=== PATIENT | male | born 1965 | race Caucasian/White ===

== ENCOUNTER 2017-09-29 08:34 | Day surgery (SDC) | payer OTHER ==
[~2017-09-29] VITALS: Ht 167.6 cm; Wt 77.3 kg
[~2017-09-29 08:34] MED LIST: Norco 5-325 Ta1 EACH PO
[2017-09-29] MEDS ORDERED: GABA400 PO (11:07)
[2017-09-29] MEDS ORDERED: Advil200 M1 PO (11:07)
== END 2017-09-29 17:30 | disposition home or self-care (01) ==
LOC: ORSCSDS 08:34
PROVIDERS: Orthopaedic Surgery
PROC: 0LQ80ZZ Repair Left Hand Tendon, Open Approach (ICD-10-PCS; principal; 2017-09-29 12:00)
PROC: 01Q60ZZ Repair Radial Nerve, Open Approach (ICD-10-PCS; principal; 2017-09-29 12:00)
DX: S66.022A Laceration of long flexor muscle, fascia and tendon of left thumb at wrist and hand level, initial encounter (principal); S64.12XA Injury of median nerve at wrist and hand level of left arm, initial encounter
CPT/HCPCS: J0690; J2250; J2405; J3010; J7120